=== PATIENT | female | born 1965 | race Caucasian/White ===

== ENCOUNTER 2017-11-23 06:27 | Day surgery (SDC) | payer BC ==
[~2017-11-23] VITALS: Ht 157.5 cm; Wt 54.4 kg
[~2017-11-23 06:27] MED LIST: FLOVENT DISKUS1 DIS1 IH; JUNEL FE 1/21 TABLET PO; VENTOLIN HFA18 GM IH
[2017-11-23 07:35] VITALS: BP 143/73
[2017-11-23 10:17] VITALS: BP 142/65
[2017-11-23 10:53] VITALS: BP 136/64
== END 2017-11-23 11:00 | disposition home or self-care (01) ==
LOC: SDC 06:27
PROC: 0UBC7ZX Excision of Cervix, Via Natural or Artificial Opening, Diagnostic (ICD-10-PCS; principal; 2017-11-23)
DX: D06.9 Carcinoma in situ of cervix, unspecified (principal)
CPT/HCPCS: 88305; 88307; 88342 TC; J1100; J1885; J2250; J3010; Q0175